=== PATIENT | female | born 1955 | race Caucasian/White ===

== ENCOUNTER → 2018-03-30 | Outpatient (CLI) | payer OTHER ==
[~2018-03-30] MED LIST: CETI5TAB22 PO; KET10 PO; LEV112 PO; LEV25 PO; NAPR-1043 PO; PER PO; [UNRECOGNIZED DRUG - OTHER]
--- NOTE | 2018-04-03 11:18 | RADIOLOGY IMAGING REPORT ---
FACILITY: [facility] PATIENT NAME: MIKE CASTANEDA : [id number] MR: [id number]: [id number] EXAM DATE: [id number] ORDERING PHYSICIAN: AIYANA REARDON TECHNOLOGIST: Jo Stone PROCEDURE:BILATERAL DIGITAL SCREENING MAMMOGRAM WITH CAD ASSISTED INTERPRETATION & 3D TOMOSYNTHESIS COMPARISON:Prior mammogram 11/30/2011 INDICATIONS:SCREENING FINDINGS: The breast tissue demonstrates scattered fibroglandular densities. There is no dominant mass, suspicious cluster, microcalcifications or persistent areas of architectural distortion. DIAGNOSTIC CATEGORY 1--NEGATIVE. RECOMMENDATIONS: ROUTINE MAMMOGRAM AND CLINICAL EVALUATION IN 1 YEAR. IMPRESSION: BIRADS 1: Negative. Dictated by: Alban Sarmiento M.D. on 04/03/2018 at 8:54 Transcribed by: LIN on 04/03/2018 at 9:31 Approved by: Alban Sarmiento M.D. on 04/03/2018 at 11:17 [facility]
== END ==
LOC: MAMO 03-23 02:44
PROVIDERS: ATTEND Emergency Medicine
DX: Z12.31 Encounter for screening mammogram for malignant neoplasm of breast (principal)
CPT/HCPCS: 77063; 77067

== ENCOUNTER → 2018-08-16 | Outpatient (CLI) | payer OTHER ==
[2018-08-16 10:01] LABS: PLATELET COUNT, AUTOMATED 200 K/uL (150-450)
[2018-08-16 10:15] LABS: LDL CHOLESTEROL 74 mg/dl
== END ==
LOC: LAB 09:33
PROVIDERS: ATTEND Emergency Medicine
DX: E66.9 Obesity, unspecified (principal); E03.9 Hypothyroidism, unspecified; R20.8 Other disturbances of skin sensation; Z72.9 Problem related to lifestyle, unspecified
CPT/HCPCS: 36415; 82040; 82247; 82310; 82374; 82435; 82465; 82565; 82607; 82947; 83036; 83718; 84075; 84132; 84155; 84295; 84443; 84450; 84460; 84478; 84520; 85025; 86803